=== PATIENT | male | born 1990 | race Caucasian/White ===

== ENCOUNTER 2019-03-17 16:16 | Emergency (ER) | payer OTHER ==
[~2019-03-17] VITALS: Ht 182.9 cm; Wt 70.3 kg
[2019-03-17] MEDS ORDERED: SUBOXONE 8 MG-1 EAC1 SL (16:34)
== END 2019-03-17 17:15 | disposition home or self-care (01) ==
LOC: ED 16:16
DX: J11.1 Influenza due to unidentified influenza virus with other respiratory manifestations (principal); F17.200 Nicotine dependence, unspecified, uncomplicated; Z79.899 Other long term (current) drug therapy
CPT/HCPCS: 99283-25; 99406

== ENCOUNTER 2020-07-26 04:32 | Emergency (ER) | payer OTHER ==
[~2020-07-26] VITALS: Ht 182.9 cm; Wt 70.3 kg
[~2020-07-26 04:32] MED LIST: SUBOXONE 8 MG-1 EAC1 SL
== END 2020-07-26 05:23 | disposition home or self-care (01) ==
LOC: ED 04:32
DX: S50.852A Superficial foreign body of left forearm, initial encounter (principal); W45.8XXA Other foreign body or object entering through skin, initial encounter; F17.200 Nicotine dependence, unspecified, uncomplicated
CPT/HCPCS: 73080; 99283-25

== ENCOUNTER 2020-08-19 07:32 | Emergency (ER) | payer OTHER ==
[~2020-08-19] VITALS: Ht 182.9 cm; Wt 79.4 kg
--- OUTSIDE RECORDS SUMMARY | 2020-08-19 07:38 | XMS ---
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 - 2 Visits in 30 Days CARE PROVIDERS There are no care providers on record at this time. Brissa has no Care Guidelines for this patient. [facility] MO[facility]: Visits indicate total known visits. ED/C VISIT TRACKING (12 MO.) [facility] COMPLAINT: - TOOTH PAIN 07/26/2020 04:32 [facility] [place] TYPE: Emergency COMPLAINT: - FOREIGN OBJECT IN LT ARM DIAGNOSES: - Superficial foreign body of left forearm, initial encounter - Nicotine dependence, unspecified, uncomplicated - Other foreign body or object entering through skin, initial encounter INPATIENT VISIT TRACKING (12 MO.) No inpatient visits to display in this time frame [email or web address]
[2020-08-19] MEDS ORDERED: PENICILLIN V P500 MG PO (07:57)
== END 2020-08-19 08:14 | disposition home or self-care (01) ==
LOC: ED 07:32
DX: K04.7 Periapical abscess without sinus (principal); K02.9 Dental caries, unspecified; F17.200 Nicotine dependence, unspecified, uncomplicated
CPT/HCPCS: 99282

== ENCOUNTER 2021-02-27 15:17 | Emergency (ER) | payer OTHER ==
[~2021-02-27] VITALS: Ht 182.9 cm; Wt 79.4 kg
[~2021-02-27 15:17] MED LIST changes: +PENICILLIN V P500 MG PO
--- OUTSIDE RECORDS SUMMARY | 2021-02-27 15:24 | XMS ---
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 Brissa has no Care Guidelines for this patient. Vijaya VISIT COUNT (12 MO.) 3 [facility] TOTAL 3 NOTE: Visits indicate total known visits. ED/UCC VISIT TRACKING (12 MO.) 02/27/2021 15:18 [facility] [place] TYPE: Emergency COMPLAINT: - EYE PAIN/INJURY 08/19/2020 07:33 [facility] [place] TYPE: Emergency COMPLAINT: - TOOTH PAIN DIAGNOSES: - Dental caries, unspecified - Other specified disorders of teeth and supporting structures - Periapical abscess without sinus - Nicotine dependence, unspecified, uncomplicated 07/26/2020 04:32 [facility] [place] TYPE: Emergency COMPLAINT: - FOREIGN OBJECT IN LT ARM DIAGNOSES: - Superficial foreign body of left forearm, initial encounter - Nicotine dependence, unspecified, uncomplicated - Other foreign body or object entering through skin, initial encounter INPATIENT VISIT TRACKING (12 MO.) No inpatient visits to display in this time frame [email or web address]
[2021-02-27] MEDS ORDERED: SUBOXONE 8 MG-1 EAC1 SL (15:45)
== END 2021-02-27 16:20 | disposition home or self-care (01) ==
LOC: ED 15:17
DX: S05.91XA Unspecified injury of right eye and orbit, initial encounter (principal); W22.8XXA Striking against or struck by other objects, initial encounter; F17.200 Nicotine dependence, unspecified, uncomplicated; Z79.899 Other long term (current) drug therapy
CPT/HCPCS: 99283

== ENCOUNTER 2021-07-23 01:57 | Emergency (ER) | payer SELFPAY ==
[~2021-07-23] VITALS: Ht 182.9 cm; Wt 79.8 kg
--- OUTSIDE RECORDS SUMMARY | 2021-07-23 02:00 | XMS ---
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 There are no care providers on record at this time. Brissa has no Care Guidelines for this patient. Vijaya VISIT COUNT (12 MO.) 1 [facility] 4 [facility] TOTAL 5 NOTE: Visits indicate total known visits. ED/UCC VISIT TRACKING (12 MO.) 07/23/2021 01:58 [facility] [place] TYPE: Emergency COMPLAINT: - GROIN PAIN 04/08/2021 03:03 [facility] TYPE: Emergency DIAGNOSES: [id number]. [facility] 02/27/2021 15:18 [facility] [place] TYPE: Emergency COMPLAINT: - EYE PAIN/INJURY DIAGNOSES: - Striking against or struck by other objects, initial encounter - Other assisted (current) drug therapy - Nicotine dependence, unspecified, uncomplicated - Ocular pain, right eye - Unspecified injury of right eye and orbit, initial encounter 08/19/2020 07:33 [facility] [place] TYPE: Emergency [...] visits to display in this time frame [email or web address]
[2021-07-23] MEDS ORDERED: OXYCODONE HCL5 MG PO (05:11)
[2021-07-23] MEDS ORDERED: MAPAP500 MG PO (05:11)
--- NOTE | 2021-07-26 17:07 | EKG ---
[facility] [address] [place] [address] Signed Normal sinus rhythm Normal ECG No previous ECGs available Confirmed by MONTANA SAENZ MD ([id number]) on 07/26/2021 5:07:36 PM Electronically Signed By: MONTANA SAENZ MD 07/26/21 1707 PATIENT NAME: ADAM LOPEZ Electrocardiogram DATE OF : 86 PHYSICIAN: MONTANA SAENZ MD REPORT #: [id number] REPORT IS CONFIDENTIAL AND NOT TO BE RELEASED WITHOUT AUTHORIZATION
== END 2021-07-23 05:44 | disposition home or self-care (01) ==
LOC: ED 01:57
DX: S30.1XXA Contusion of abdominal wall, initial encounter (principal); S70.11XA Contusion of right thigh, initial encounter; F17.200 Nicotine dependence, unspecified, uncomplicated; V18.4XXA Pedal cycle driver injured in noncollision transport accident in traffic accident, initial encounter; Y93.55 Activity, bike riding
CPT/HCPCS: 36415; 70450; 72131; 73706; 74177; 80048; 81001; 83605; 85025; 86850; 86900; 86901; 93005; 93010; 99284-25; A9270; G0480; J2270; J7030; Q9967

== ENCOUNTER 2021-07-28 23:02 | Emergency (ER) | payer OTHER ==
[~2021-07-28] VITALS: Ht 182.9 cm; Wt 79.4 kg
[~2021-07-28 23:02] MED LIST changes: +MAPAP500 MG PO; +OXYCODONE HCL5 MG PO
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
[2021-07-29] MEDS ORDERED: CRUTCHES XX (00:17)
[2021-07-29] MEDS ORDERED: HYDROCODON-ACE1 EA10 PO (00:17)
== END 2021-07-29 00:55 | disposition home or self-care (01) ==
LOC: ED 23:02
DX: S80.11XA Contusion of right lower leg, initial encounter (principal); F17.200 Nicotine dependence, unspecified, uncomplicated; X58.XXXA Exposure to other specified factors, initial encounter
CPT/HCPCS: 93971; 99284-25; A9270

== ENCOUNTER 2021-08-08 19:10 | Inpatient (IN) | payer OTHER ==
[~2021-08-08] VITALS: Ht 182.9 cm; Wt 83.9 kg
[~2021-08-08 19:10] MED LIST changes: +CRUTCHES XX; +HYDROCODON-ACE1 EA10 PO
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
--- NOTE | 2021-08-11 14:16 | PATH ---
[facility] [address], [place] [address] Signed SPECIMEN(S): A UPPER MEDIAL THIGH SPECIMEN SOURCE: A. UPPER MEDIAL THIGH CLINICAL HISTORY: Upper medial thigh abscess/right groin abscess. Products of debridement. Right leg edema. History of blunt trauma. FINAL PATHOLOGIC DIAGNOSIS: Soft tissue, upper medial thigh/right groin, products of debridement: - Hemorrhagic fibrinous material with admixed acute and chronic inflammation. NAL:cml:C2NR MICROSCOPIC EXAMINATION: Histologic sections of all submitted blocks are examined by light microscopy. These findings, together with the gross examination, support the pathologic diagnosis. GROSS DESCRIPTION: The specimen, labeled "AH, products of debridement, upper medial thigh," is received in formalin and consists of several pieces of irregular shaped, soft, congested fibromembranous tissue fragments that aggregate measure 5.0 x 3.5 0.7 cm. Sectioning through the specimen is grossly unremarkable. Semi Automatic Sewing Machine Operator sections are submitted in cassette (A1). JS (under the direct supervision of a pathologist) The Gross Description was prepared using a voice recognition system. The report was reviewed for accuracy; however, sound-alike word errors, addition and/or deletions may occur. If there is any question about this report, please contact Client Services. PERFORMING LABORATORY: The technical component was performed by [facility], [address] [place] [id number] (CLIA# [id number]). Professional interpretation was performed by [facility], [address] [address] (CLIA# [id number]). Diagnostician: Vandana Bear MD Pathologist Electronically Signed 08/11/2021 PATIENT NAME: ADAM LOPEZ PATHOLOGY DATE OF : 86 REPORT #: [id number] PHYSICIAN: [facility] PCP: RUSSELL LAURENT REPORT IS CONFIDENTIAL AND NOT TO BE RELEASED WITHOUT AUTHORIZATION [address] [address] Signed Copies: ~ PATIENT NAME: ADAM LOPEZ PATHOLOGY DATE OF : [birth year] REPORT #: [id number] PHYSICIAN: [facility] PCP: RUSSELL LAURENT REPORT IS CONFIDENTIAL AND NOT TO BE RELEASED WITHOUT AUTHORIZATION
[2021-08-14] MEDS ORDERED: ELIQUIS5 MG PO ×2 (12:20→12:21)
[2021-08-14] MEDS ORDERED: BACTRIM DS TAB1 EACH PO (12:21)
[2021-08-14] MEDS ORDERED: TYLENOL EXTRA500 MG PO (12:22)
== END 2021-08-14 14:30 | disposition home or self-care (01) | DRG 571 ==
LOC: ED 19:10 → MS 08-09 00:57
PROVIDERS: ADMIT Surgery; ATTEND Surgery
PROC: B543ZZA Ultrasonography of Right Jugular Veins, Guidance (ICD-10-PCS; 2021-08-09)
PROC: 0JBL0ZZ Excision of Right Upper Leg Subcutaneous Tissue and Fascia, Open Approach (ICD-10-PCS; 2021-08-09)
PROC: 05HM33Z Insertion of Infusion Device into Right Internal Jugular Vein, Percutaneous Approach (ICD-10-PCS; principal; 2021-08-09 08:08)
DX: L02.214 Cutaneous abscess of groin (principal); F11.20 Opioid dependence, uncomplicated; L03.115 Cellulitis of right lower limb; I82.411 Acute embolism and thrombosis of right femoral vein; T79.A0XA Compartment syndrome, unspecified, initial encounter; F17.200 Nicotine dependence, unspecified, uncomplicated; Z79.899 Other long term (current) drug therapy; Z59.00 Homelessness unspecified; Z20.822 Contact with and (suspected) exposure to COVID-19
CPT/HCPCS: 00400; 36415; 36556; 73702; 73706; 80048; 80202; 82553; 83605; 85025; 85379; 85730; 87040; 87070; 87075; 87186; 87205; 87502; 94760; 94762; 97163; 99284-25; A9270; C9803; J0131; J1170; J1644; J1650; J1885; J2001; J2250; J2270; J2543; J2704; J3010; J3370; J7030; J7060; J7121; Q9967; U0003

== ENCOUNTER 2021-08-19 19:23 | Emergency (ER) | payer OTHER ==
[~2021-08-19] VITALS: Ht 182.9 cm; Wt 80.0 kg
[~2021-08-19 19:23] MED LIST changes: +BACTRIM DS TAB1 EACH PO; +ELIQUIS5 MG PO; +TYLENOL EXTRA500 MG PO
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
[2021-08-20] MEDS ORDERED: IBU600 MG PO (00:02)
[2021-08-20] MEDS ORDERED: CEPHALEXIN500 MG PO (00:02)
[2021-08-20] MEDS ORDERED: TYLENOL EXTRA500 MG PO (00:02)
[2021-08-20] MEDS ORDERED: BACTRIM DS TAB1 EACH PO (00:02)
== END 2021-08-20 00:33 | disposition home or self-care (01) ==
LOC: ED 19:23
DX: L03.115 Cellulitis of right lower limb (principal); F17.200 Nicotine dependence, unspecified, uncomplicated
CPT/HCPCS: 36415; 80053; 85025; 99283; A9270

== ENCOUNTER 2023-01-22 20:23 | Emergency (ER) | payer OTHER ==
[~2023-01-22] VITALS: Ht 182.9 cm; Wt 97.7 kg
[~2023-01-22 20:23] MED LIST changes: +CEPHALEXIN500 MG PO; +IBU600 MG PO
--- OUTSIDE RECORDS SUMMARY | 2023-01-22 20:30 | XMS ---
PreManage Notification: ADAM LOPEZ Security Weaver Wire Loom Events 1 event(s) in the past 18 months Most recent security events: Elopement at [facility] 07/27/2021 14:00 - Patient eloped before treatment completed. - Patient with suicidal and/or homicidal ideations eloped. - Patient eloped with IV in place. Details: PATIENT LWBS CRITERIA MET - Group Notification CARE PROVIDERS -Katt- Dentist: Mason Liner [facility] PHONE: [phone] Brissa has no Care Guidelines for this patient. ESarika. VISIT COUNT (12 MO.) 2 [facility] TOTAL 2 NOTE: Visits indicate total known visits. 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
[2023-01-22] MEDS ORDERED: BACTRIM DS TAB1 EACH PO (20:39)
[2023-01-22 20:54] VITALS: BP 135/82
== END 2023-01-22 20:55 | disposition home or self-care (01) ==
LOC: ED 20:23
DX: L02.211 Cutaneous abscess of abdominal wall (principal); F17.200 Nicotine dependence, unspecified, uncomplicated
CPT/HCPCS: 99282; A9270

== ENCOUNTER 2024-04-04 14:24 | Emergency (ER) | payer OTHER ==
[~2024-04-04] VITALS: Ht 182.9 cm; Wt 76.7 kg
--- OUTSIDE RECORDS SUMMARY | 2024-04-04 14:31 | XMS ---
PreManage Notification: ADAM LOPEZ Security Nailhead Setter Events No recent Security Events currently on file CRITERIA MET - Group Notification CARE PROVIDERS -, [facility] Dentist: Director Global Sales [facility] PHONE: [phone] -Katt- Dentist: Director Global Sales Current [facility] PHONE: [phone] Brissa has no Care Guidelines for this patient. Vijaya VISIT COUNT (12 MO.) 1 [facility] TOTAL 1 NOTE: Visits indicate total known visits. ED/UCC VISIT TRACKING (12 MO.) 04/04/2024 14:25 [facility] TYPE: Emergency COMPLAINT: - SUBSTANCE ABUSE INPATIENT VISIT TRACKING (12 MO.) No inpatient visits to display in this time frame [email or web address]
[2024-04-04] MEDS ORDERED: ALBUTEROL/IPRATROPIUM 3 ML NEB INH ONE (17:15)
[2024-04-04] MEDS ORDERED: LOPERAMIDE HCL 2 MG CAP PO ONE (17:45)
[2024-04-04 17:46] LABS: INFLUENZA B NAA NEGATIVE (NEGATIVE); RESPIRATORY SYNCYTIAL VIR NAA POSITIVE (NEGATIVE)
[2024-04-04] MEDS ORDERED: VENTOLIN HFA18 GM INH (18:26)
[2024-04-04] MEDS ORDERED: PREDNISONE20 MG PO (18:26)
[2024-04-04 18:35] VITALS: BP 133/89
== END 2024-04-04 18:35 | disposition home or self-care (01) ==
LOC: ED 14:24
PROVIDERS: Emergency Medicine
DX: J06.9 Acute upper respiratory infection, unspecified (principal); B97.4 Respiratory syncytial virus as the cause of diseases classified elsewhere; F17.200 Nicotine dependence, unspecified, uncomplicated
CPT/HCPCS: 71045; 87502; 94640; 99284-25; U0002

== ENCOUNTER 2024-07-13 22:32 | Emergency (ER) | payer OTHER ==
[~2024-07-13] VITALS: Ht 182.9 cm; Wt 150.0 kg
[~2024-07-13 22:32] MED LIST changes: +PREDNISONE20 MG PO; +VENTOLIN HFA18 GM INH
--- OUTSIDE RECORDS SUMMARY | 2024-07-13 22:35 | XMS ---
PreManage Notification: ADAM LOPEZ Security Cardiothoracic Physiotherapist Events No recent Security Events currently on file CRITERIA MET - Group Notification CARE PROVIDERS There are no care providers on record at this time. Brissa has no Care Guidelines for this patient. Vijaya VISIT COUNT (12 MO.) 2 [facility] TOTAL 2 NOTE: Visits indicate total known visits. ED/UCC VISIT TRACKING (12 MO.) 07/13/2024 22:32 [facility] TYPE: Emergency COMPLAINT: - WITHDRAWAL 04/04/2024 14:[address] [facility] TYPE: Emergency COMPLAINT: - SUBSTANCE ABUSE DIAGNOSES: - Acute upper respiratory infection, unspecified - Nicotine dependence, unspecified, uncomplicated - Other fatigue - Respiratory syncytial virus as the cause of diseases classified elsewhere INPATIENT VISIT TRACKING (12 MO.) No inpatient visits to display in this time frame [email or web address]
[2024-07-13] MEDS ORDERED: ONDANSETRON 4 MG TAB ODT SL ONE (22:45)
[2024-07-13 22:57] LABS: BASOPHILS 0.2 % (0-2); EOSINOPHILS 0.7 % (0-6); HEMATOCRIT 37.3 % (35.0-50.0); HEMOGLOBIN 12.9 g/dL (12.0-18.0); MCH 30.7 (27-36); MCHC 34.7 g/dl (30-36); MCV 88.6 fl (81-99); MONOCYTES 2.7 % (0-12); NEUTROPHILS 90.4 % (39-80); PLATELET COUNT 244 K/uL (140-440); RDW 15.9 (10.5-15.0)
[2024-07-13 23:14] LABS: ALBUMIN 3.6 g/dL (3.4-5.0); ALBUMIN/GLOBULIN RATIO 1.2 (1.1-2.4); ANION GAP 12.5 (7-21); BILIRUBIN, TOTAL 0.7 mg/dL (0.2-1.0); CALCIUM 8.5 mg/dL (8.5-10.1); CREATININE, SERUM 0.75 mg/dL (0.70-1.30); POTASSIUM 3.5 mmol/L (3.5-5.1); PROTEIN, TOTAL 6.6 g/dL (6.4-8.2)
[2024-07-14] MEDS ORDERED: LACTULOSE10 GM/15 M PO (00:17)
[2024-07-14] MEDS ORDERED: NALOXONE 4 MG NASAL SPRAY #2 HOME.PACK NAS ONE (00:30)
[2024-07-14 01:12] VITALS: BP 141/89
== END 2024-07-14 01:00 | disposition home or self-care (01) ==
LOC: ED 22:32
PROVIDERS: Family Medicine
DX: K59.00 Constipation, unspecified (principal); F19.10 Other psychoactive substance abuse, uncomplicated; F17.200 Nicotine dependence, unspecified, uncomplicated; Z79.899 Other long term (current) drug therapy
CPT/HCPCS: 36415; 74018; 80053; 80307; 83735; 85025; 99284; A9270; J3490

== ENCOUNTER 2024-10-20 02:36 | Emergency (ER) | payer OTHER ==
[~2024-10-20] VITALS: Ht 182.9 cm; Wt 84.4 kg
[~2024-10-20 02:36] MED LIST changes: +LACTULOSE10 GM/15 M PO
--- OUTSIDE RECORDS SUMMARY | 2024-10-20 02:40 | XMS ---
PreManage Notification: ADAM LOPEZ Security Notcher Events No recent Security Events currently on file CRITERIA MET - Group Notification CARE PROVIDERS -, [facility] Dentist: Leasing Representative Current [facility] PHONE: [phone] Brissa has no Care Guidelines for this patient. Vijaya VISIT COUNT (12 MO.) [address] [facility] TOTAL 3 NOTE: Visits indicate total known visits. ED/UCC VISIT TRACKING (12 MO.) 10/20/2024 02:37 [facility] TYPE: Emergency COMPLAINT: - WITHDRAWL 07/13/2024 22:32 [facility] TYPE: Emergency COMPLAINT: - WITHDRAWAL DIAGNOSES: - Constipation, unspecified - Nicotine dependence, unspecified, uncomplicated - Other intermission coordinator (current) drug therapy - Other psychoactive substance abuse, uncomplicated - Unspecified abdominal pain 04/04/2024 14:25 [facility] TYPE: Emergency COMPLAINT: - SUBSTANCE ABUSE DIAGNOSES: - Acute upper respiratory infection, unspecified - Nicotine dependence, unspecified, uncomplicated - Other fatigue - Respiratory syncytial virus as the cause of diseases classified elsewhere INPATIENT VISIT TRACKING (12 MO.) No inpatient visits to display in this time frame [email or web address]
[2024-10-20] MEDS ORDERED: KETAMINE HCL 500 MG/5 ML MDV IM ONE (02:45)
[2024-10-20] MEDS ORDERED: BENZTROPINE MESYLATE 2 MG/2 ML AMP IM ONE (02:45)
[2024-10-20] MEDS ORDERED: HALOPERIDOL LACTATE 5 MG/ML VIAL IV ONE (03:15)
[2024-10-20] MEDS ORDERED: ETOMIDATE 40 MG/20 ML VIAL IV ONE (03:15)
[2024-10-20 03:25] LABS: BASOPHILS 0.4 % (0.2-1.2); EOSINOPHILS 0.6 % (0.8-7.0); LYMPHOCYTES 23.1 % (21.8-53.1); MCH 30.7 PG (25.7-32.2); MCHC 33.8 g/dL (32.3-36.5); MCV 90.8 fL (79.0-92.2); MONOCYTES 7.1 % (5.3-12.2); NEUTROPHILS 68.5 % (34.0-67.9); RBC 4.04 M/uL (4.63-6.08)
[2024-10-20 03:52] LABS: ALCOHOL, MEDICAL <3 ng/dL (<3); ALT (SGPT) 23 U/L (14-59); AST (SGOT) 47 U/L (15-37); GLOMERULAR FILTRATION RATE,EST 93 mL/min (>60); PROTEIN, TOTAL 7.0 g/dL (6.4-8.2); TSH, 3RD GENERATION 6.489 uIU/mL (0.358-3.740); UREA NITROGEN 24 mg/dL (7-18)
[2024-10-20 04:25] LABS: BLOOD/HGB, URINE NEGATIVE (Negative); KETONE, URINE TRACE (Negative); LEUK ESTERASE, URINE NEGATIVE (negative); NITRITE, URINE NEGATIVE (negative)
[2024-10-20 04:38] LABS: AMPHETAMINES, URINE POSITIVE (NEGATIVE); BARBITURATES, URINE NEGATIVE (NEGATIVE); BENZODIAZEPINE, URINE NEGATIVE (NEGATIVE); CANNABINOID, URINE NEGATIVE (NEGATIVE); COCAINE, URINE NEGATIVE (NEGATIVE); ECSTASY, URINE POSITIVE (NEGATIVE); FENTANYL, URINE POSITIVE (NEGATIVE); METHADONE, URINE POSITIVE (NEGATIVE); OPIATES, URINE NEGATIVE (NEGATIVE); OXYCODONE, URINE NEGATIVE (NEGATIVE); PHENCYCLIDINE, URINE NEGATIVE (NEGATIVE)
[2024-10-20] MEDS ORDERED: NALOXONE 4 MG NASAL SPRAY #2 HOME.PACK NAS ONE ×2 (07:15→15:45)
[2024-10-20 15:50] VITALS: BP 107/77
== END 2024-10-20 15:51 | disposition home or self-care (01) ==
LOC: ED 02:36
PROVIDERS: Family Medicine
DX: F11.10 Opioid abuse, uncomplicated (principal); F15.10 Other stimulant abuse, uncomplicated; F17.200 Nicotine dependence, unspecified, uncomplicated; Z79.52 Long term (current) use of systemic steroids; Z79.899 Other long term (current) drug therapy
CPT/HCPCS: 36415; 70450; 80053; 80307; 81003; 84439; 84443; 85025; 96372; 99285-25; G0480; J0515; J2405; J3490